=== PATIENT | male | born 1975 | race Caucasian/White ===

== ENCOUNTER 2016-12-31 10:05 | Emergency (ER) | payer MEDICAID ==
[2016-12-31] MEDS ORDERED: LORazepam 1 MG TAB PO ONE (10:57)
--- NOTE | 2016-12-31 11:00 | EDPHY ---
H & P HPI/ROS: CHIEF COMPLAINT: Anxiety, delusional HISTORY OF PRESENT ILLNESS: Patient reports that he is been on the run from the [place] [employer]. He says that they have been trying to kill him for the past 2 years because "I know stuff. I know about their drugs, murders and stuff. " He feels that he has been followed by them in [place] and now in [place]. Feels that they are trying to kill him because of the information he knows. He denies any auditory hallucinations. He denies any intent to harm himself or harm anyone else. He is actually wanting to avoid them harming him. He has previous diagnosis of anxiety and psychosis, and he thinks he has been diagnosed with delusions. He feels that those are inaccurate diagnoses. He says that an acquaintance of his called the police today because of this situation. He said that he was evaluated emergency medical personnel and brought here by ambulance. No other associated complaints or modifying factors. He reports that he is supposed to have an appointment next Monday with the psychiatrist at [facility]. He is currently homeless PSYCHIATRIC DIAGNOSES: Anxiety, psychosis, delusions PRIOR PSYCHIATRIC EVALUATIONS: [facility] 2017 M1/DETAINER: Detainer by Dr. Angel. No M1 in place. REVIEW OF SYSTEMS: Ten systems reviewed and are negative unless otherwise noted in the HPI EXAMINATION General Appearance: Alert, no distress, anxious Head: normocephalic, atraumatic Eyes: Pupils equal and round, no conjunctival pallor or injection ENT, Mouth: Mucous membranes moist. Uvula midline. Neck: Normal inspection, supple, non-tender Respiratory: No retractions or distress. Cardiovascular: Regular rate. Good signs of perfusion Gastrointestinal: Abdomen is soft and nontender Back: non-tender, no bony abnormalities Neurological: A&O, nonfocal, normal gait Skin: Warm and dry, no rash Extremities: Nontender, no pedal edema Psychiatric: Anxious with fidgeting and pacing. History and statements suggest paranoid delusions. He does not describe hallucinations. He is not suicidal or homicidal. DIFFERENTIAL DIAGNOSES: Including but not limited to paranoid schizophrenia, delusional disorder schizophrenia, schizoaffective, acute drug intoxication MDM: 10:50 a.m. Patient is very anxious and exhibits ideas of paranoid delusions. He is not homicidal or suicidal. He is in no acute distress. He has consented to our workup and psychiatric evaluation. He is brought here by ambulance but there was no police hold. He has been placed on a detainer signed by Dr. Angel. 1:00 p.m. Laboratory studies have returned. The patient is now medically cleared for evaluation. 6:00 p.m. I have re-evaluated this patient twice between 4:00 six p.m.. He remains calm and cooperative. He has been evaluated by EPS and we are awaiting placement for him. At this time Dr. Paez will assume care the patient. Please see his note for final disposition. SUPERVISION: Patient was evaluated in conjunction with the supervising physician. Please see their note for details. Source: Patient Constitutional: Initial Vital Signs Temperature (C) 98.2 F 12/31/16 10:10 Heart Rate 100 12/31/16 10:10 Respiratory Rate 18 12/31/16 10:10 Blood Pressure 153/90 H 12/31/16 10:10 O2 Sat (%) 97 12/31/16 10:10 O2 Delivery Mode Room Air Allergies/Adverse Reactions: No Known Allergies Allergy (Unverified 12/31/16 10:57) Home Medications: Medication Instructions Recorded NK [No Known Home Meds] 12/31/16 Medical Decision Making - Data Points Laboratory Results: Laboratory Results 12/31/16 12:20 12/31/16 12:20 12/31/16 12/31/16 12/31/16 12:20 12:20 10:30 WBC 7.77 10^3/uL 10^3/uL (3.80-9.50) RBC 5.78 10^6/uL 10^6/uL (4.40-6.38) Hgb 16.9 g/dL g/dL (13.7-17.5) Hct 50.2 % % (40.0-51.0) MCV 86.9 fL fL (81.5-99.8) MCH 29.2 pg pg (27.9-34.1) MCHC 33.7 g/dL g/dL (32.4-36.7) RDW 13.2 % % (11.5-15.2) Plt Count 396 10^3/uL 10^3/uL (150-400) MPV 9.4 fL fL (8.7-11.7) Neut % (Auto) 77.4 % H % (39.3-74.2) Lymph % (Auto) 16.6 % % (15.0-45.0) [place] % (Auto) 4.8 % % (4.5-13.0) Eos % (Auto) 0.4 % L % (0.6-7.6) Baso % (Auto) 0.4 % % (0.3-1.7) Nucleat RBC Rel Count 0.0 % % (0.0-0.2) Absolute Neuts (auto) 6.02 10^3/uL 10^3/uL (1.70-6.50) Absolute Lymphs (auto) 1.29 10^3/uL 10^3/uL (1.00-3.00) Absolute Monos (auto) 0.37 10^3/uL 10^3/uL (0.30-0.80) Absolute Eos (auto) 0.03 10^3/uL 10^3/uL (0.03-0.40) Absolute Basos (auto) 0.03 10^3/uL 10^3/uL (0.02-0.10) Absolute Nucleated RBC 0.00 10^3/uL 10^3/uL (0-0.01) Immature Gran % 0.4 % % (0.0-1.1) Immature Gran # 0.03 10^3/uL 10^3/uL (0.00-0.10) Sodium 140 mEq/L mEq/L (134-144) Potassium 4.3 mEq/L mEq/L (3.5-5.2) Chloride 104 mEq/L mEq/L (97-110) Carbon Dioxide 22 mEq/l mEq/l (22-31) Anion Gap 14 mEq/L mEq/L (8-16) BUN 12 mg/dL mg/dL (7-23) Creatinine 0.7 mg/dL mg/dL (0.7-1.3) Estimated GFR > 60 Glucose 107 mg/dL H mg/dL (70-100) Calcium 10.3 mg/dL mg/dL (8.5-10.4) Salicylates < 1.0 mg/dL L mg/dL (2.0-20.0) Urine Opiates Screen NEGATIVE (NEGATIVE) Acetaminophen < 10 mcg/mL L mcg/mL (10.0-30.0) Urine Barbiturates NEGATIVE (NEGATIVE) Ur Phencyclidine Scrn NEGATIVE (NEGATIVE) Ur Amphetamine Screen NEGATIVE (NEGATIVE) U Benzodiazepines Scrn NEGATIVE (NEGATIVE) Urine Cocaine Screen NEGATIVE (NEGATIVE) U Marijuana (THC) Screen NEGATIVE (NEGATIVE) Ethyl Alcohol < 10 mg/dL mg/dL (0-10) Medications Given: Discontinued Medications Lorazepam (Ativan) 2 mg PO EDNOW ONE Stop: 12/31/16 10:58 Last Admin: 12/31/16 11:01 Dose: 2 mg Departure - Departure Referrals: Patient,NotPresent [Unknown] - As per Instructions
[2016-12-31 12:26] LABS: % IMMATURE GRANULYOCYTES 0.4 % (0.0-1.1); ABSOLUTE IMMATURE GRANULOCYTES 0.03 10^3/uL (0.00-0.10); ADD DIFF? NO; ADD MORPH? NO; ADD SCAN? NO; ATYPICAL LYMPHOCYTE FLAG 30 (0-99); FRAGMENT RBC FLAG 0 (0-99); HEMATOCRIT 50.2 % (40.0-51.0); HEMOGLOBIN 16.9 g/dL (13.7-17.5); LEFT SHIFT FLG 0 (0-99); LIPEMIA HEMOLYSIS FLAG 80 (0-99); MEAN CELL HEMOGLOBIN 29.2 pg (27.9-34.1); MEAN CELL HEMOGLOBIN CONCENTR. 33.7 g/dL (32.4-36.7); MEAN CELL VOLUME 86.9 fL (81.5-99.8); MEAN PLATELET VOLUME 9.4 fL (8.7-11.7); PLATELET CLUMPS FLAG 0 (0-99); PLATELET COUNT 396 10^3/uL (150-400); RED BLOOD CELL COUNT 5.78 10^6/uL (4.40-6.38); RED CELL DISTRIBUTION WIDTH 13.2 % (11.5-15.2)
[2016-12-31 12:38] LABS: ANION GAP 14 mEq/L (8-16); CALCIUM 10.3 mg/dL (8.5-10.4); CARBON DIOXIDE 22 mEq/l (22-31); CHLORIDE 104 mEq/L (97-110); CREATININE 0.7 mg/dL (0.7-1.3); ETHANOL SERUM < 10 mg/dL (0-10); GLOMERULAR FILTRATION RATE > 60; GLUCOSE 107 mg/dL (70-100); POTASSIUM 4.3 mEq/L (3.5-5.2); SALICYLATE < 1.0 mg/dL (2.0-20.0); SODIUM 140 mEq/L (134-144)
[2016-12-31 16:46] VITALS: RESP 16
[2016-12-31 23:09] VITALS: TEMP 97.3
[2017-01-01 00:57] VITALS: BP 114/72; PULSE 89; O2SAT 95
== END 2017-01-01 01:03 ==
LOC: EEVIPCON 10:05
DX: F22 Delusional disorders (principal)
CPT/HCPCS: 80305; G0480

== ENCOUNTER → 2017-01-13 | Outpatient (CLI) | payer MEDICAID | LOC: FIMAGING 11:00 | PROVIDERS: ATTEND Family Medicine | DX: Z11.1 Encounter for screening for respiratory tuberculosis (principal); A15.0 Tuberculosis of lung ==

== ENCOUNTER 2017-02-25 09:01 | Emergency (ER) | payer MEDICAID ==
--- NOTE | 2017-02-25 09:15 | EDPHY ---
H & P Stated Complaint: Tarry balck stool x 4 days. WT. loss 16 lbs Time Seen by Provider: 02/25/17 09:15 - Personal History Current Tetanus/Diphtheria Vaccine: Unsure Current Tetanus Diphtheria and Acellular Pertussis (TDAP): Unsure - Medical/Surgical History Hx Asthma: No Hx Chronic Respiratory Disease: No Hx Diabetes: No Hx Cardiac Disease: No Hx Renal Disease: No Hx Cirrhosis: No Hx Alcoholism: No Hx HIV/AIDS: No Hx Splenectomy or Spleen Trauma: No Other PMH: Fx R Arm, anxiety, released from [facility] 2017 with paranoia. Homeless. - Social History Smoking Status: Never smoked Constitutional: Initial Vital Signs Temperature (C) 36.8 C 02/25/17 09:07 Heart Rate 95 02/25/17 09:07 Respiratory Rate 18 02/25/17 09:07 Blood Pressure 138/82 H 02/25/17 09:07 O2 Sat (%) 93 02/25/17 09:07 O2 Delivery Mode Room Air Allergies/Adverse Reactions: No Known Allergies Allergy (Unverified 12/31/16 10:57) Home Medications: Medication Instructions Recorded NK [No Known Home Meds] 12/31/16 Medical Decision Making - Diagnostics Imaging: Discussed imaging studies w/ call manager Radiologist, I viewed and interpreted images myself ED Course/Re-evaluation: CHIEF COMPLAINT: Black stools, vomiting, weight loss HISTORY OF PRESENT ILLNESS: The patient is a 41 y/o male complaining of a 2- week history of vomiting and decreased appetite and black tarry stools for the last 4 days. Over the last 2 weeks, he has completely lost his appetite and developed continuous nausea with associated intermittent vomiting. He has lost 16lbs since his symptoms started and is concerned he has cancer. He also notes some heartburn during this time period. He has a history of heavy alcohol use, but has been sober for last month and a half. He denies other medical history. REVIEW OF SYSTEMS: A 10 point review of systems was performed and is negative with the exception of the elements mentioned in the history of present illness. PHYSICAL EXAM: HR, BP, O2 Sat, RR. Temp noted General Appearance: Alert, well hydrated, appropriate, anxious but non-toxic appearing. Head: Atraumatic without scalp tenderness or obvious injury Eyes: Pupils equal, round, reactive to light and accommodation, EOMI, no trauma , no injection. Nose: Atraumatic, no rhinorrhea, clear. Throat: There is no erythema or exudates, no lesions, normal tonsils, mucus membranes moist. Neck: Supple, nontender, no lymphadenopathy. Respiratory: No retractions, no distress, no wheezes, and no accessory muscle use. Lungs are clear to auscultation bilaterally. Cardiovascular: Regular rate and rhythm, no murmurs, rubs, or gallops. Good capillary refill all extremities. Gastrointestinal: Abdomen is soft, nontender, non-distended, no masses, no rebound, no guarding, no peritoneal signs. Musculoskeletal: Normal active ROM of all extremities, atraumatic. Neurological: Alert, appropriate, and interactive. Nonfocal neuro exam. Skin: No rashes, good turgor, no nodules on palpation. Past medical history: Mental health, anxiety - Geodon, Prozac Past surgical history: Denies Family history: Noncontributory Social history: history of heavy alcohol use, but sober for last month and a half, no illicit drugs DIAGNOSTICS/PROCEDURES/CRITICAL CARE TIME: Abdominal CT: nothing acute DIFFERENTIAL DIAGNOSIS: The differential diagnosis for the patient's upper GI bleeding included but was not limited to ulcer disease, gastritis, Eloisa- Khalil tear, and esophageal varices. MEDICAL DECISION MAKING: This is a 41 y/o male with unspecified mental health and alcohol abuse history who presents with a 2-week history of decreased appetite and vomiting with black tarry stools beginning 4 days ago. He notes some associated acid reflux symptoms. He is quite anxious, but has a soft, benign abdomen and no other remarkable findings. Plan for IV, labs including CBC, CHEM, LFT, and lipase, and abdomen CT. 20mg IV Pepcid, 1mg IV Ativan, and 1L IV NS administered for symptoms. Reassessed patient and discussed work up. Abdomen remains benign. His CT shows nothing acute and his labs are unremarkable. He will be discharged with a script for Pepcid for possible gastritis and referral to GI for follow up. Return precautions given. He is comfortable with this plan. - Data Points Laboratory Results: Laboratory Results 02/25/17 09:25 02/25/17 09:25 02/25/17 02/25/17 09:25 09:25 WBC 8.09 10^3/uL 10^3/uL (3.80-9.50) RBC 5.58 10^6/uL 10^6/uL (4.40-6.38) Hgb 16.9 g/dL g/dL (13.7-17.5) Hct 48.9 % % (40.0-51.0) MCV 87.6 fL fL (81.5-99.8) MCH 30.3 pg pg (27.9-34.1) MCHC 34.6 g/dL g/dL (32.4-36.7) RDW 13.3 % % (11.5-15.2) Plt Count 331 10^3/uL 10^3/uL (150-400) MPV 9.4 fL fL (8.7-11.7) Neut % (Auto) 77.3 % H % (39.3-74.2) Lymph % (Auto) 16.2 % % (15.0-45.0) [place] % (Auto) 5.8 % % (4.5-13.0) Eos % (Auto) 0.1 % L % (0.6-7.6) Baso % (Auto) 0.2 % L % (0.3-1.7) Nucleat RBC Rel Count 0.0 % % (0.0-0.2) Absolute Neuts (auto) 6.25 10^3/uL 10^3/uL (1.70-6.50) Absolute Lymphs (auto) 1.31 10^3/uL 10^3/uL (1.00-3.00) Absolute Monos (auto) 0.47 10^3/uL 10^3/uL (0.30-0.80) Absolute Eos (auto) 0.01 10^3/uL L 10^3/uL (0.03-0.40) Absolute Basos (auto) 0.02 10^3/uL 10^3/uL (0.02-0.10) Absolute Nucleated RBC 0.00 10^3/uL 10^3/uL (0-0.01) Immature Gran % 0.4 % % (0.0-1.1) Immature Gran # 0.03 10^3/uL 10^3/uL (0.00-0.10) Sodium 139 mEq/L mEq/L (134-144) Potassium 4.2 mEq/L mEq/L (3.5-5.2) Chloride 102 mEq/L mEq/L (97-110) Carbon Dioxide 19 mEq/l L mEq/l (22-31) Anion Gap 18 mEq/L H mEq/L (8-16) BUN 10 mg/dL mg/dL (7-23) Creatinine 0.9 mg/dL mg/dL (0.7-1.3) Estimated GFR > 60 Glucose 86 mg/dL mg/dL (70-100) Calcium 10.3 mg/dL mg/dL (8.5-10.4) Total Bilirubin 1.6 mg/dL H mg/dL (0.1-1.4) Conjugated Bilirubin 0.5 mg/dL mg/dL (0.0-0.5) Unconjugated Bilirubin 1.1 mg/dL mg/dL (0.0-1.1) AST 40 IU/L IU/L (17-59) ALT 41 IU/L IU/L (21-72) Alkaline Phosphatase 123 IU/L IU/L (38-126) Total Protein 8.5 g/dL H g/dL (6.3-8.2) Albumin 5.1 g/dL H g/dL (3.5-5.0) Lipase 64.0 IU/L IU/L (23-300) Medications Given: Discontinued Medications Sodium Chloride (Ns) 1,000 mls @ 0 mls/hr IV ONCE ONE; Wide Open PRN Reason: Protocol Stop: 02/25/17 09:22 Last Admin: 02/25/17 09:39 Dose: 1,000 mls Famotidine/Sodium Chloride (Pepcid 20 Mg (Premix)) 50 mls @ 200 mls/hr IV EDNOW ONE Stop: 02/25/17 09:35 Last Admin: 02/25/17 10:02 Dose: 50 mls Lorazepam (Ativan Injection) 1 mg IVP EDNOW ONE Stop: 02/25/17 09:23 Last Admin: 02/25/17 09:39 Dose: 1 mg Departure - Departure Disposition: Home, Routine, Self-Care Clinical Impression: Gastritis Qualifiers: Gastritis type: alcoholic Chronicity: acute Gastritis bleeding: with bleeding Qualified Code(s): K29.21 - Alcoholic gastritis with bleeding Condition: Good Instructions: Gastritis (ED), At-Risk Alcohol Use (ED) Additional Instructions: 1. Take Pepcid as prescribed for symptoms. 2. Avoid any alcohol use as this will worsen your symptoms. 3. Follow up with Dr. Frederick, cinder block mason, next week for further evaluation. 4. Return to the ED for worsening of condition. Referrals: NONE *PRIMARY CARE P,. [Primary Care Provider] - As per Instructions Anton Frederick MD [Medical Doctor] - As per Instructions [facility],. [Clinic] - As per Instructions Report Scribed for: Praveen Angel Report Scribed by: Melly Murphy Date of Report: 02/25/17 Time of Report: 10:40
[2017-02-25] MEDS ORDERED: FAMOTIDINE 20 MG/NACL 50 ML IV ONE (09:21)
[2017-02-25] MEDS ORDERED: NS 1,000 ML IV ONE (09:21)
[2017-02-25] MEDS ORDERED: LORazepam 2 MG/ML INJ IVP ONE (09:22)
[2017-02-25] MEDS ORDERED: LORazepam 2 MG/ML INJ ONE (09:23)
[2017-02-25 09:35] LABS: % IMMATURE GRANULYOCYTES 0.4 % (0.0-1.1); ABSOLUTE IMMATURE GRANULOCYTES 0.03 10^3/uL (0.00-0.10); ADD DIFF? NO; ADD MORPH? NO; ADD SCAN? NO; ATYPICAL LYMPHOCYTE FLAG 0 (0-99); FRAGMENT RBC FLAG 0 (0-99); HEMATOCRIT 48.9 % (40.0-51.0); HEMOGLOBIN 16.9 g/dL (13.7-17.5); LEFT SHIFT FLG 0 (0-99); LIPEMIA HEMOLYSIS FLAG 90 (0-99); MEAN CELL HEMOGLOBIN 30.3 pg (27.9-34.1); MEAN CELL HEMOGLOBIN CONCENTR. 34.6 g/dL (32.4-36.7); MEAN CELL VOLUME 87.6 fL (81.5-99.8); MEAN PLATELET VOLUME 9.4 fL (8.7-11.7); PLATELET CLUMPS FLAG 0 (0-99); PLATELET COUNT 331 10^3/uL (150-400); RED BLOOD CELL COUNT 5.58 10^6/uL (4.40-6.38); RED CELL DISTRIBUTION WIDTH 13.3 % (11.5-15.2)
[2017-02-25] MEDS ORDERED: IOPAMIDOL (ISOVUE-300) 100 ML BTL ONE (09:56)
[2017-02-25 10:04] LABS: ALANINE AMINOTRANSFERASE 41 IU/L (21-72); ALBUMIN 5.1 g/dL (3.5-5.0); ALKALINE PHOSPHATASE 123 IU/L (38-126); ANION GAP 18 mEq/L (8-16); ASPARTATE AMINOTRANSFERASE 40 IU/L (17-59); BILIRUBIN,TOTAL 1.6 mg/dL (0.1-1.4); BILIRUBIN-CONJUGATED 0.5 mg/dL (0.0-0.5); BILIRUBIN-UNCONJUGATED 1.1 mg/dL (0.0-1.1); CALCIUM 10.3 mg/dL (8.5-10.4); CARBON DIOXIDE 19 mEq/l (22-31); CHLORIDE 102 mEq/L (97-110); CREATININE 0.9 mg/dL (0.7-1.3); GLOMERULAR FILTRATION RATE > 60; GLUCOSE 86 mg/dL (70-100); POTASSIUM 4.2 mEq/L (3.5-5.2); SODIUM 139 mEq/L (134-144); TOTAL PROTEIN 8.5 g/dL (6.3-8.2)
[2017-02-25 12:06] VITALS: BP 111/72; PULSE 84; RESP 16; TEMP 98.1; O2SAT 96
== END 2017-02-25 12:05 | disposition home or self-care (01) ==
DX: K29.21 Alcoholic gastritis with bleeding (principal)
CPT/HCPCS: 96365; J2060; Q9967